=== PATIENT | male | born 1985 | race Caucasian/White ===

== ENCOUNTER 2017-02-07 12:27 | Emergency (ER) | payer OTHER ==
--- NOTE | 2017-02-07 13:26 | EDM.PDOC ---
ED HPI GENERAL MEDICAL PROBLEM - General Chief Complaint: Lower Extremity Injury/Pain Stated Complaint: RIGHT FOOT INJURY Time Seen by Provider: 02/07/17 13:00 Source of Information: Reports: Patient History Limitations: Reports: No Limitations - History of Present Illness INITIAL COMMENTS - FREE TEXT/NARRATIVE: Patient is a 31-year-old male who presents to the ED complaining of right foot pain. Patient states last night while working on the [employer]. He accidentally had a 2500 pound casing pipe fall on his right foot. Patient was wearing steel toed boots landing across the steel toe and the dorsal aspect of his foot. Immediately started to ice the affected foot and has been nonweightbearing ever since. Pain is at a 2 with rest. With placement of weight to the affected foot pain is a 10 out of 10. No prior injury to the affected foot. No bruising present. Denies any additional complaints at this time. Right Feet Pain Score (Numeric/FACES): 1 - Related Data Allergies Allergy/AdvReac Type Severity Reaction Status Date / Time No Known Allergies Allergy Verified 02/07/17 12:42 Home Meds: Home Meds . [No Known Home Meds] 02/07/17 [History] Past Medical History - Past Health History Medical/Surgical History: Denies Medical/Surgical History Social & Family History - Tobacco Use Smoking Status *Q: Never Smoker Second Hand Smoke Exposure: No - Caffeine Use Caffeine Use: Reports: Coffee, Soda - Recreational Drug Use Recreational Drug Use: No Review of Systems - Review of Systems Review Of Systems: See Below Musculoskeletal: Reports: Foot Pain (Right) Neurological: Reports: Difficulty Walking. Denies: Numbness, Tingling ED EXAM, GENERAL - Physical Exam Exam: See Below Exam Limited By: No Limitations General Appearance: Alert, WD/WN, No Apparent Distress Ears: Hearing Grossly Normal Nose: Normal Inspection Throat/Mouth: Normal Voice, No Airway Compromise Head: Atraumatic, Normocephalic Neck: Normal Inspection, Supple Respiratory/Chest: No Respiratory Distress, No Accessory Muscle Use Cardiovascular: Normal Peripheral Pulses, Regular Rate, Rhythm Peripheral Pulses: 2+: Posterior Tibial (R) Extremities: Other (On examination the right foot: Mild swelling to the dorsal aspect. No bruising or bony abnormalities present. With palpation no pain with palpation of the fifth, fourth, third, second metatarsals. Pain with palpation of the first metatarsal and MCP. With palpation of these plantar aspect of the foot there is increasing pain along the first metatarsal with the development of pain along the base of the fourth and fifth metatarsal on the dorsal aspect. No numbness or tingling present. No sensory changes noted.) Neurological: Alert, Oriented, CN II-XII Intact, Normal Cognition, No Motor/ Sensory Deficits Psychiatric: Normal Affect, Normal Mood Skin Exam: Warm, Dry, Intact, Normal Color Course - Vital Signs Last Recorded V/S: Last Vital Signs Temp 97.3 F 02/07/17 12:42 Pulse 84 02/07/17 12:42 Resp 16 02/07/17 12:42 BP 127/80 02/07/17 12:42 Pulse Ox 97 02/07/17 12:42 - Orders/Labs/Meds Orders: Active Orders 24 hr Category Date Time Status DME for Discharge [COMM] Stat Oth 02/07/17 13:41 Ordered - Re-Assessments/Exams Free Text/Narrative Re-Assessment/Exam: Obtain x-ray of the right foot. X-ray of the right foot reveals nondisplaced fracture of the midshaft of the second metatarsal. No obvious additional fractures noted. Final interpretation is pending. Ordered walking boot and crutches. Discharge instructions as documented Departure - Departure Time of Disposition: 14:54 Disposition: Home, Self-Care 01 Condition: Good Clinical Impression: Foot fracture, right Qualifiers: Encounter type: initial encounter Fracture type: closed Qualified Code(s): S92.901A - Unspecified fracture of right foot, initial encounter for closed fracture - Discharge Information Instructions: Crutch Use, [id number], Cast or Splint Care, [id number] Referrals: PCP,None [Primary Care Provider] - Forms: ED Department Discharge, ED Return to Work/School Form Additional Instructions: As discussed x-ray of the right foot did reveal a fracture to the midshaft of the second metatarsal. Final interpretation is pending. You will be notified if additional fractures are appreciated. You are to be nonweightbearing until evaluated by orthopedic surgeon in the next 7-10 days. Wear the walking boot when ambulate with crutches. Only take off when bathing and icing. Call and make an appointment to be seen. For modification a job duties please see your occupational med documented. Elevate when able to reduce any swelling and pain. Place ice to the affected area 4-6 times daily, 20 months in duration, do not apply ice directly on the skin. Take Tylenol and ibuprofen in alternating fashion for pain. Return to ED as needed for any new or worsening symptoms. - My Orders Last 24 Hours: My Active Orders 02/07/17 13:41 DME for Discharge [COMM] Stat - Assessment/Plan Last 24 Hours: My Active Orders 02/07/17 13:41 DME for Discharge [COMM] Stat
--- NOTE | 2017-02-07 14:44 | CR ---
Right foot: Four views of the right foot were obtained. Comparison: No prior study. Joint spaces are preserved. Fracture is identified within the mid shaft of the second metatarsal which appears nondisplaced. No additional fracture or other abnormality is seen. Impression: 1. Nondisplaced fracture within the mid shaft of the second metatarsal. Diagnostic code #3
== END 2017-02-07 15:25 | disposition home or self-care (01) ==
LOC: JD.ED 12:27
DX: S92.324A Nondisplaced fracture of second metatarsal bone, right foot, initial encounter for closed fracture (principal); W20.8XXA Other cause of strike by thrown, projected or falling object, initial encounter
CPT/HCPCS: 73630-26-RT; 73630-RT; 99283